=== PATIENT | male | born 1980 | race Caucasian/White ===

== ENCOUNTER 2018-03-27 12:30 | Emergency (ER) | payer SELFPAY ==
[~2018-03-27] VITALS: Ht 182.9 cm; Wt 117.9 kg
[2018-03-27 13:11] VITALS: BP 135/94
--- NOTE | 2018-03-27 13:11 | NUR ---
Patient ambulated to bed 11. RN evaluating patient at bedside.
--- NOTE | 2018-03-27 13:18 | NUR ---
PATIENT PRESENTS TO ED WITH TOOTHACHE LEFT UPPER MOLAR X 3 DAYS . PT STATES . DENIES N/V/D; SKIN IS PINK/WARM/DRY; AAOX4 WITH EVEN AND STEADY GAIT; PATIENT STATES PAIN OF 10/10 AT THIS TIME; VSS; PATIENT POSITIONED FOR COMFORT; HOB ELEVATED; BEDRAILS UP X2; BED DOWN. ER MD MADE AWARE OF PT STATUS.
[2018-03-27] MEDS ORDERED: KETOROLAC 60 MG/2 ML VIAL IM ONE (13:40)
[2018-03-27] MEDS ORDERED: MORPHINE SULFATE 2 MG/ML SYR IM ONE (13:40)
--- NOTE | 2018-03-27 14:19 | NUR ---
Patient discharged with v/s stable. Written and verbal after care instructions given and explained. Patient verbalized understanding. Ambulatory with steady gait. All questions addressed prior to discharge. Advised to follow up with PMD.
[2018-03-27 14:20] VITALS: BP 132/88
== END 2018-03-27 14:19 | disposition home or self-care (01) ==
LOC: MED 12:30
DX: K08.89 Other specified disorders of teeth and supporting structures (principal)
CPT/HCPCS: 96372; 99284; J1885; J2270

== ENCOUNTER 2021-03-18 17:07 | Emergency (ER) | payer MEDICAID ==
[~2021-03-18] VITALS: Ht 185.4 cm; Wt 136.1 kg
[2021-03-18 17:41] VITALS: BP 161/93
--- NOTE | 2021-03-18 18:07 | NUR ---
Dr. Al at pt bedside for further evaluation.
--- NOTE | 2021-03-18 18:08 | NUR ---
PT GIVEN URINAL BEDSIDE.
--- NOTE | 2021-03-18 18:12 | NUR ---
BEDSIDE WITH PT
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
[2021-03-18] MEDS ORDERED: ONDANSETRON 4 MG ODT PO ONE (18:15)
--- NOTE | 2021-03-18 18:15 | NUR ---
PT PROVIDED URINAL. PT STATES HE IS UNABLE TO URINATE AT THIS TIME. MADE AWARE. WATER PROVIDED
--- NOTE | 2021-03-18 18:17 | NUR ---
LAB BEDSIDE WITH PT
--- NOTE | 2021-03-18 18:19 | NUR ---
EMT at pt bedside for EKG.
[2021-03-18 18:29] LABS: BASOPHILS # (AUTO) 0.1 K/uL (0.00-0.22); BASOPHILS % (AUTO) 1.1 % (0.0-2.0); EOSINOPHILS % (AUTO) 0.5 % (0.0-4.0); HEMATOCRIT 47.3 % (36-52); HEMOGLOBIN 15.3 g/dL (12.0-18.0); LYMPHOCYTES # (AUTO) 1.2 K/uL (2.0-11.5); LYMPHOCYTES % (AUTO) 13.4 % (20.5-51.1); MEAN CORPUSCULAR HEMOGLOBIN 27 pg (27-31); MEAN CORPUSCULAR HGB CONC 32 g/dL (33-37); MEAN CORPUSCULAR VOLUME 82.5 fL (80-94); MONOCYTES # (AUTO) 0.4 K/uL (0.8-1.0); MONOCYTES % (AUTO) 4.8 % (1.7-9.3); NEUTROPHILS # (AUTO) 7.2 K/uL (1.8-7.7); NEUTROPHILS % (AUTO) 80.2 % (42.2-75.2); PLATELET COUNT (AUTO) 219 K/uL (140-450); RED BLOOD CELL COUNT(AUTO) 5.73 MIL/uL (4.20-6.10); RED CELL DISTRIBUTION WIDTH 16.2 % (11.6-13.7)
--- NOTE | 2021-03-18 18:34 | NUR ---
Pt taken to CT via W/C. Addendum: 03/18/21 at 1845 by [email or web address] Taken to RAD va W/C after CT.
--- NOTE | 2021-03-18 18:45 | NUR ---
Pt to ER bed 4 via W/C.
[2021-03-18 18:56] LABS: ALBUMIN 4.1 g/dL (3.4-5.0); ANION GAP 9.4 (8-16); CARBON DIOXIDE 32.6 mmol/L (21-32); CREATININE 0.9 mg/dL (0.6-1.3); THYROID STIMULATING HORMONE 0.47 uIU/mL (0.34-3.74); TOTAL BILIRUBIN 0.6 mg/dL (0.0-1.0)
--- NOTE | 2021-03-18 19:13 | NUR ---
Pt SP02 88% on RA, placed pt on 2L NC SP02 90%, moved up to 4L NC SP02 97%. Will continue to monitor.
--- NOTE | 2021-03-18 19:25 | NUR ---
Gave report to TITI Hua. Transfer of care at this time.
--- NOTE | 2021-03-18 19:26 | NUR ---
PT RESTING BEDSIDE WITH EYES CLOSED. AT BEDSIDE WITH PT. VITAL SIGNS STABLE. WILL CONTUINE TO MONITOR
--- NOTE | 2021-03-18 19:27 | NUR ---
GAVE REPORT TO KONSTANTIN WALLS. TRANSFER OF CARE GIVEN
--- NOTE | 2021-03-18 19:30 | NUR ---
PT. OXYGEN TITRATED TO 3L, PT. O2 SATTING AT 98%.
--- NOTE | 2021-03-18 19:45 | NUR ---
ENCOURAGED TO DRINK WATER TO GIVE URINE SAMPLE. URINAL IS AT BEDSIDE. PT. TOLERATING WATER WELL. VOICES NO COMPLAINTS.
--- NOTE | 2021-03-18 19:50 | NUR ---
URINE SAMPLE COLLECTED, HANDED TO CARLO FROM LAB.
[2021-03-18 20:11] LABS: APPEARANCE,URINE CLEAR (CLEAR); BILIRUBIN,URINE NEGATIVE (NEGATIVE); BLOOD, URINE NEGATIVE (NEGATIVE); COLOR,URINE ORANGE (YELLOW); LEUKOCYTE ESTERASE ,URINE NEGATIVE (NEGATIVE); NITRITE, URINE NEGATIVE (NEGATIVE); PH,URINE 8.5 (5.0-9.0); UGLUCOSE NEGATIVE (NEGATIVE)
--- NOTE | 2021-03-18 20:12 | NUR ---
PT. SPO2 SATTING AT 99% ON 3L, OXYGEN TITRATED TO 2L. PT. SPO2 CURRENTLY AT 99% NASAL CANNULA, ON 2L.
[2021-03-18 20:23] LABS: BARBITURATE, URINE NEGATIVE ng/ml (NEG <=200)
[2021-03-18 20:24] LABS: BENZODIAZEPINE, URINE NEGATIVE ng/mL (NEG <=200); CANNABINOID, URINE NEGATIVE ng/mL (NEG <=50); COCAINE, URINE NEGATIVE ng/mL (NEG <=300); OPIATE, URINE NEGATIVE ng/mL (NEG <=2000); PHENCYCLIDINE SCREEN,URINE NEGATIVE ng/mL (NEG <=25)
--- NOTE | 2021-03-18 20:31 | NUR ---
FORREST COX AT BEDSIDE.
[2021-03-18] MEDS ORDERED: ONDA-24 PO (20:53)
[2021-03-18 20:56] VITALS: BP 169/107
--- NOTE | 2021-03-18 20:56 | NUR ---
Patient discharged with v/s stable. Written and verbal after care instructions given and explained. Patient alert, oriented and verbalized understanding of instructions. Ambulatory with steady gait. All questions addressed prior to discharge. ID band removed. Patient advised to follow up with PMD. Rx of ZOFRAN ODT given. Patient educated on indication of medication including possible reaction and side effects. Opportunity to ask questions provided and answered.
== END 2021-03-18 20:56 | disposition home or self-care (01) ==
LOC: MED 17:07
DX: S09.90XA Unspecified injury of head, initial encounter (principal); R53.1 Weakness; F15.10 Other stimulant abuse, uncomplicated; R55 Syncope and collapse; I10 Essential (primary) hypertension; Z98.890 Other specified postprocedural states; Z79.899 Other long term (current) drug therapy; W06.XXXA Fall from bed, initial encounter; Y93.89 Activity, other specified; Y92.89 Other specified places as the place of occurrence of the external cause; Y99.8 Other external cause status
CPT/HCPCS: 36415; 70450; 71045; 80053; 80305; 81003; 84443; 84484; 85025; 93005; 99285; Q0162

== ENCOUNTER 2021-03-31 11:46 | Emergency (ER) | payer MEDICAID ==
[~2021-03-31] VITALS: Ht 185.4 cm; Wt 149.7 kg
[~2021-03-31 11:46] MED LIST: ONDA-24 PO
[2021-03-31 12:00] VITALS: BP 149/104
[2021-03-31 13:20] LABS: ALBUMIN 3.9 g/dL (3.4-5.0); ANION GAP 8.8 (8-16); CARBON DIOXIDE 28.3 mmol/L (21-32); CHLORIDE 102 mmol/L (98-107); CREATININE 0.7 mg/dL (0.6-1.3); GFR ARICAN-AMERICAN 161 mL/min (>90); GLUCOSE 125 mg/dL (74-106); POTASSIUM 4.1 mmol/L (3.5-5.1); SODIUM SERUM 135 mmol/L (136-145); TOTAL BILIRUBIN 0.6 mg/dL (0.0-1.0); UREA NITROGEN, BLOOD 12 mg/dL (7-18)
[2021-03-31] MEDS ORDERED: ONDANSETRON 4 MG/2 ML VIAL IVP ONE (13:25)
[2021-03-31] MEDS ORDERED: NACL 0.9% 1,000 ML IV ONE (13:25)
[2021-03-31 13:30] LABS: APPEARANCE,URINE CLEAR (CLEAR); BILIRUBIN,URINE NEGATIVE (NEGATIVE); BLOOD, URINE NEGATIVE (NEGATIVE); COLOR,URINE YELLOW (YELLOW); LEUKOCYTE ESTERASE ,URINE NEGATIVE (NEGATIVE); NITRITE, URINE NEGATIVE (NEGATIVE); UGLUCOSE NEGATIVE (NEGATIVE)
[2021-03-31 13:31] LABS: BASOPHILS # (AUTO) 0.1 K/uL (0.00-0.22); EOSINOPHILS # (AUTO) 0.1 K/uL (0-0.4); EOSINOPHILS % (AUTO) 0.7 % (0.0-4.0); HEMATOCRIT 50.1 % (36-52); HEMOGLOBIN 16.5 g/dL (12.0-18.0); LYMPHOCYTES # (AUTO) 1.4 K/uL (2.0-11.5); LYMPHOCYTES % (AUTO) 15.8 % (20.5-51.1); MEAN CORPUSCULAR HEMOGLOBIN 27 pg (27-31); MEAN CORPUSCULAR HGB CONC 33 g/dL (33-37); MEAN CORPUSCULAR VOLUME 82.6 fL (80-94); MONOCYTES # (AUTO) 0.5 K/uL (0.8-1.0); MONOCYTES % (AUTO) 5.3 % (1.7-9.3); NEUTROPHILS # (AUTO) 6.8 K/uL (1.8-7.7); NEUTROPHILS % (AUTO) 77.2 % (42.2-75.2); PLATELET COUNT (AUTO) 246 K/uL (140-450); RED BLOOD CELL COUNT(AUTO) 6.07 MIL/uL (4.20-6.10); RED CELL DISTRIBUTION WIDTH 15.8 % (11.6-13.7); WHITE BLOOD COUNT (AUTO) 8.8 K/uL (4.8-10.8)
[2021-03-31 13:42] LABS: BARBITURATE, URINE NEGATIVE ng/ml (NEG <=200); BENZODIAZEPINE, URINE NEGATIVE ng/mL (NEG <=200); CANNABINOID, URINE NEGATIVE ng/mL (NEG <=50); COCAINE, URINE NEGATIVE ng/mL (NEG <=300); OPIATE, URINE NEGATIVE ng/mL (NEG <=2000); PHENCYCLIDINE SCREEN,URINE NEGATIVE ng/mL (NEG <=25)
[2021-03-31 13:43] LABS: ASPARTATE AMINOTRANSFERASE 23 U/L (15-37)
[2021-03-31] MEDS ORDERED: IBUP-2213 PO (13:58)
[2021-03-31] MEDS ORDERED: ONDA8TAB87 PO (13:58)
[2021-03-31 14:41] VITALS: BP 142/98
== END 2021-03-31 14:43 | disposition home or self-care (01) ==
LOC: MED 11:46
DX: S09.90XA Unspecified injury of head, initial encounter (principal); R41.82 Altered mental status, unspecified; F15.90 Other stimulant use, unspecified, uncomplicated; F12.90 Cannabis use, unspecified, uncomplicated; R53.83 Other fatigue; I10 Essential (primary) hypertension; Z79.899 Other long term (current) drug therapy; Z98.890 Other specified postprocedural states; W22.8XXA Striking against or struck by other objects, initial encounter; Y93.89 Activity, other specified; Y92.89 Other specified places as the place of occurrence of the external cause; Y99.8 Other external cause status
CPT/HCPCS: 36415; 70450; 71045; 80053; 80305; 81003; 84484; 85025; 93005; 96361; 96374; 99285; G0482; J2405; J7030

== ENCOUNTER 2021-06-29 22:55 | Emergency (ER) | payer MEDICAID ==
[~2021-06-29] VITALS: Ht 185.4 cm; Wt 127.0 kg
[~2021-06-29 22:55] MED LIST changes: +IBUP-2213 PO; +ONDA8TAB87 PO
[2021-06-29 23:36] VITALS: BP 169/100
--- NOTE | 2021-06-29 23:39 | NUR ---
TO LOBBY A/W BED AMBULATORY
--- NOTE | 2021-06-30 00:40 | NUR ---
PATIENT LEFT WITHOUT BEING SEEN BY DR. KHAN. NO FURTHER CARE PROVIDED FOR PATIENT.
--- NOTE | 2021-06-30 00:40 | NUR ---
PATIENT CALL TO BE SEEN BY ERMD NO RESPONSE
--- NOTE | 2021-06-30 00:45 | NUR ---
CALLED FOR SECOND TIME NO RESPONSE
--- NOTE | 2021-06-30 00:55 | NUR ---
CALLED FOR THE THIRD TIME , NO RESPONSE
== END 2021-06-30 00:40 | disposition left against medical advice (07) ==
LOC: MED 22:55
DX: Z53.21 Procedure and treatment not carried out due to patient leaving prior to being seen by health care provider (principal)

== ENCOUNTER 2021-10-26 14:43 | Emergency (ER) | payer MEDICAID ==
[~2021-10-26] VITALS: Ht 185.4 cm; Wt 154.2 kg
[~2021-10-26 14:43] MED LIST changes: +ONDA-188 PO; -ONDA-24 PO
[2021-10-26 14:48] VITALS: BP 148/99
--- NOTE | 2021-10-26 14:57 | NUR ---
PT AMB TO BED 2.
--- NOTE | 2021-10-26 15:31 | NUR ---
BLOOD COLLECTED AND HANDED TO LAB
--- NOTE | 2021-10-26 15:32 | NUR ---
MIROSLAVA CARL WALKED TO LAB.
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
[2021-10-26 15:48] LABS: BASOPHILS # (AUTO) 0.1 K/uL (0.00-0.22); BASOPHILS % (AUTO) 1.2 % (0.0-2.0); EOSINOPHILS # (AUTO) 0.1 K/uL (0-0.4); EOSINOPHILS % (AUTO) 1.6 % (0.0-4.0); HEMATOCRIT 45.1 % (36-52); HEMOGLOBIN 14.7 g/dL (12.0-18.0); LYMPHOCYTES # (AUTO) 1.6 K/uL (2.0-11.5); LYMPHOCYTES % (AUTO) 20.4 % (20.5-51.1); MEAN CORPUSCULAR HEMOGLOBIN 26 pg (27-31); MEAN CORPUSCULAR HGB CONC 33 g/dL (33-37); MEAN CORPUSCULAR VOLUME 80.3 fL (80-94); MONOCYTES # (AUTO) 0.5 K/uL (0.8-1.0); MONOCYTES % (AUTO) 6.9 % (1.7-9.3); NEUTROPHILS # (AUTO) 5.3 K/uL (1.8-7.7); NEUTROPHILS % (AUTO) 69.9 % (42.2-75.2); PLATELET COUNT (AUTO) 226 K/uL (140-450); RED BLOOD CELL COUNT(AUTO) 5.62 MIL/uL (4.20-6.10); RED CELL DISTRIBUTION WIDTH 15.5 % (11.6-13.7); WHITE BLOOD COUNT (AUTO) 7.6 K/uL (4.8-10.8)
--- NOTE | 2021-10-26 16:00 | NUR ---
ATTEMPTED TO CALL [facility] [employer] [facility] AT [facility] X3 TIMES WITHOUT ANY SUCCESS. [facility] AT BEDSIDE. WILL GIVE REPORT FOR CONTINUATION OF CARE.
[2021-10-26 16:01] LABS: ALBUMIN 3.8 g/dL (3.4-5.0); ANION GAP 10.3 (8-16); ASPARTATE AMINOTRANSFERASE 32 U/L (15-37); CARBON DIOXIDE 29.7 mmol/L (21-32); CHLORIDE 105 mmol/L (98-107); CREATININE 1.1 mg/dL (0.6-1.3); GFR ARICAN-AMERICAN 95 mL/min (>90); GLUCOSE 134 mg/dL (74-106); SODIUM SERUM 141 mmol/L (136-145); TOTAL BILIRUBIN 0.4 mg/dL (0.0-1.0); UREA NITROGEN, BLOOD 19 mg/dL (7-18)
--- NOTE | 2021-10-26 16:20 | NUR ---
SPOKE TO ANG BIGGS RN AT [facility], REPORT GIVEN. REQUESTS [facility] WAIT FOR CTS IMAGES PREIOR TO TX. [facility] MADE AWARE.
--- NOTE | 2021-10-26 16:45 | NUR ---
CD GIVEN TO [facility] FOR TX FOR HIGHER LEVEL OF CARE
== END 2021-10-26 16:25 | disposition short-term general hospital (02) ==
LOC: MED 14:43
DX: S02.5XXA Fracture of tooth (traumatic), initial encounter for closed fracture (principal); S01.512A Laceration without foreign body of oral cavity, initial encounter; S50.02XA Contusion of left elbow, initial encounter; S09.90XA Unspecified injury of head, initial encounter; R58 Hemorrhage, not elsewhere classified; I10 Essential (primary) hypertension; Z79.899 Other long term (current) drug therapy; V87.8XXA Person injured in other specified noncollision transport accidents involving motor vehicle (traffic), initial encounter; Y93.89 Activity, other specified; Y92.89 Other specified places as the place of occurrence of the external cause; Y99.8 Other external cause status
CPT/HCPCS: 36415; 70450; 70486; 72125; 73080; 80053; 85025; 85610; 85730; 99285; G0482; Q0092

== ENCOUNTER 2021-12-04 20:13 | Emergency (ER) | payer MEDICAID ==
[~2021-12-04] VITALS: Ht 185.4 cm; Wt 154.2 kg
[2021-12-04 20:16] VITALS: BP 159/114
[2021-12-04] MEDS: KETOROLAC 60 MG/2 ML VIAL IM ONE ×2 (21:12→21:15)
[2021-12-04 21:14] VITALS: BP 148/100
[2021-12-04] MEDS ORDERED: ONDA8TAB87 PO (21:17)
[2021-12-04] MEDS ORDERED: IBUP-2213 PO (21:17)
== END 2021-12-04 21:14 | disposition home or self-care (01) ==
LOC: MED 20:13
DX: R07.89 Other chest pain (principal); R11.0 Nausea; I10 Essential (primary) hypertension; F12.90 Cannabis use, unspecified, uncomplicated; Z79.899 Other long term (current) drug therapy
CPT/HCPCS: 93005; 99283; J1885

== ENCOUNTER 2022-04-16 03:35 | Emergency (ER) | payer MEDICAID ==
[~2022-04-16] VITALS: Ht 185.4 cm; Wt 130.2 kg
[2022-04-16 03:43] VITALS: BP 158/90
--- NOTE | 2022-04-16 03:46 | NUR ---
TO LOBBY A/W BED AMBULATORY
--- NOTE | 2022-04-16 04:28 | NUR ---
PT AMBULATED TO BED NO 3
--- NOTE | 2022-04-16 04:34 | NUR ---
DR NOLASCO AT BEDSIDE EXAMINING PATIENT
[2022-04-16] MEDS ORDERED: diphenhydrAMINE 50 MG CAP PO ONE (04:35)
[2022-04-16] MEDS ORDERED: PRED20TA5 PO (04:55)
[2022-04-16] MEDS ORDERED: DIPH25TA53 PO (04:55)
[2022-04-16 05:00] VITALS: BP 158/90
== END 2022-04-16 05:00 | disposition home or self-care (01) ==
LOC: MED 03:35
DX: J02.9 Acute pharyngitis, unspecified (principal); R05.9 Cough, unspecified; I10 Essential (primary) hypertension; Z79.899 Other long term (current) drug therapy; Z98.890 Other specified postprocedural states
CPT/HCPCS: 99282; Q0163

== ENCOUNTER 2022-05-10 02:36 | Emergency (ER) | payer MEDICAID ==
[~2022-05-10] VITALS: Ht 185.4 cm; Wt 131.5 kg
[~2022-05-10 02:36] MED LIST changes: +DIPH25TA53 PO; +PRED20TA5 PO
[2022-05-10 02:42] VITALS: BP 141/91
--- NOTE | 2022-05-10 02:46 | NUR ---
PT W/C ASSISTED TO BED 09.
[2022-05-10] MEDS ORDERED: ACETAMINOPHEN EXTRA STRENGTH 500 MG TAB PO ONE (02:50)
--- NOTE | 2022-05-10 03:00 | NUR ---
pt to CT via wc
[2022-05-10 03:33] VITALS: BP 152/99
--- NOTE | 2022-05-10 06:05 | NUR ---
Patient discharged. Written and verbal after care instructions given and explained. Patient verbalized understanding. Ambulatory with steady gait. ID band removed. All questions addressed prior to discharge. Advised to follow up with PMD.
== END 2022-05-10 06:05 | disposition home or self-care (01) ==
LOC: MED 02:36
DX: S09.90XA Unspecified injury of head, initial encounter (principal); F10.129 Alcohol abuse with intoxication, unspecified; I10 Essential (primary) hypertension; Z79.899 Other long term (current) drug therapy; W19.XXXA Unspecified fall, initial encounter; Y93.89 Activity, other specified; Y92.89 Other specified places as the place of occurrence of the external cause; Y99.8 Other external cause status
CPT/HCPCS: 70450; 90471; 90715; 99284

== ENCOUNTER 2022-11-02 07:17 | Emergency (ER) | payer MEDICAID ==
[~2022-11-02] VITALS: Ht 188 cm; Wt 134.3 kg
[2022-11-02 07:22] VITALS: BP 163/104
--- NOTE | 2022-11-02 07:47 | NUR ---
ASSUMED PATIENT CARE, NURSING ASSESSMENT COMPLETED.
--- NOTE | 2022-11-02 07:53 | NUR ---
TO CT VIA [facility]
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
[2022-11-02 08:21] VITALS: BP 167/119
--- NOTE | 2022-11-02 08:34 | NUR ---
DR NOLASCO AT BEDSIDE FOR REEVAL
--- NOTE | 2022-11-02 08:42 | NUR ---
Patient discharged with v/s stable. Written and verbal after care instructions ABOUT HEAD INJURY given and explained. Patient verbalized understanding. Ambulatory with steady gait. All questions addressed prior to discharge. Advised to follow up with PMD.
== END 2022-11-02 08:41 | disposition home or self-care (01) ==
LOC: MED 07:17
DX: S09.90XA Unspecified injury of head, initial encounter (principal); I10 Essential (primary) hypertension; Z79.899 Other long term (current) drug therapy; Z98.890 Other specified postprocedural states; W22.8XXA Striking against or struck by other objects, initial encounter; Y93.89 Activity, other specified; Y92.89 Other specified places as the place of occurrence of the external cause; Y99.8 Other external cause status
CPT/HCPCS: 70450; 99284